=== PATIENT | female | born 1970 | race Caucasian/White ===

== ENCOUNTER 2024-10-05 13:46 | Outpatient (CLI) | payer OTHER ==
[2024-10-05 23:15] LABS: Hemoglobin A1c 5.9 % (4.0-6.0)
== END 2024-10-05 13:47 | disposition home or self-care (01) ==
LOC: NAV LAB 13:46
PROVIDERS: ATTEND Pathology Anatomic Pathology & Clinical Pathology
DX: Z00.00 Encounter for general adult medical examination without abnormal findings (principal)
CPT/HCPCS: 36415; 83036